=== PATIENT | male | born 1970 | race African-American/Black ===

== ENCOUNTER 2019-09-13 15:11 | Inpatient (IN) ==
[2019-09-13] MEDS ORDERED: ALBUTEROL 2.5 MG/3 ML NEB RESP TX STA (15:47)
[2019-09-13 16:18] LABS: ABG Base Excess -3.9 MMOL/L (-2.5-2.5); ABG HCO3 21.2 MMOL/L (20-26); ABG Oxygen Saturation 98.3 % (95-100); ABG PCO2 22.4 MM HG (35-48); ABG PH 7.495 (7.35-7.45); ABG TCO2 14.6 MMOL/L (23-27)
[2019-09-13 16:45] LABS: Basophils % 0.2 % (0.0-0.8); Eosinophils % 0.2 % (0.00-10.9); Hematocrit 47.2 VOL% (42.0-52.0); Hemoglobin 15.3 GM/DL (14.0-18.0); Immature Granulocytes % 0.2 %; Immature Granulocytes Absolute 0.01 #; Lymphocytes # 1.6 10*3/uL (1.4-4.0); Lymphocytes % 27.9 % (21.2-54.2); Mean Corpuscular HGB Conc 32.4 GM/DL (32-36); Mean Corpuscular Volume 91.7 FL (87-102); Mean Platelet Volume 12.7 FL (9.6-12.0); Monocytes % 8.8 % (1.7-12.7); NRBC # 0.04 10*3/uL; Neutrophils % 62.7 % (38.7-73.9); Platelet Count 88 T/CUMM (130-400); Red Blood Count 5.15 MC/CUMM (3.8-5.5); Red Cell Distribution Width 13.9 % (9.3-17.3); White Blood Count 5.9 T/CUMM (4-12)
[2019-09-13 17:04] LABS: Albumin 3.1 G/DL (3.4-5.0); Bilirubin,Total 1.9 MG/DL (0.2-1.0); Calcium 8.8 MG/DL (8.5-10.1); Osmolality,Calculated 289.5 MOS/KG (273-304); Total Protein 6.4 G/DL (6.4-8.3)
[2019-09-13 17:18] LABS: Platelet Estimate Decreased
[2019-09-13] MEDS ORDERED: ACETAMINOPHEN 325 MG TABLET PO PRN (18:06)
[2019-09-13] MEDS ORDERED: PROMETHAZINE 25 MG TABLET PO PRN (18:06)
[2019-09-13] MEDS ORDERED: FUROSEMIDE 40 MG/4 ML VIAL IV ONE ×2 (18:13→22:30)
[2019-09-13] MEDS ORDERED: cefTRIAXone 1,000 MG in SYRINGE 1 EACH IV SCH (18:30)
[2019-09-13] MEDS ORDERED: LORazepam 2 MG/1 ML VIAL IV PRN (18:41)
[2019-09-13] MEDS ORDERED: SODIUM CHLORIDE 0.9% 2,000 ML IV ONE (18:55)
[2019-09-13] MEDS ORDERED: SODIUM CHLORIDE 0.9% 1,000 ML IV SCH (19:00)
[2019-09-13] MEDS: ALBUTEROL/IPRATROPIUM 3 ML NEB RESP TX SCH (19:34)
[2019-09-13] MEDS ORDERED: ENOXAPARIN 40 MG/0.4 ML SYRINGE SUBCUT SCH (21:00)
[2019-09-13] MEDS: NICOTINE 21 MG/24 HR PATCH TRANSDERM SCH (21:50)
[2019-09-13] MEDS: FOLIC ACID 1 MG TABLET PO SCH (21:53)
[2019-09-13 23:37] LABS: Apearance,Urine CLEAR (Clear); Bacteria,Urine Occasional /HPF (Few); Bilirubin,Urine Negative (Negative); Blood, Urine Negative (Negative); Glucose,Urine (UA) Negative (Negative); Hyaline Casts,Urine 3 /LPF (0-3); Ketones,Urine Negative (Negative); Mucus,Urine Occasional /LPF (Occasional); Nitrite,Urine Negative (Negative); Protein,Urine Negative; RBC,Urine 5 /HPF (0-4); Urine Color Yellow (Yellow); Urine Specific Gravity 1.045 (1.001-1.035); WBC,Urine 1 /HPF (0-6)
[2019-09-14] MEDS: ALBUTEROL/IPRATROPIUM 3 ML NEB RESP TX SCH ×4 (00:38→20:03)
[2019-09-14 01:24] LABS: Barbiturates Screen,Urine Negative (Negative); Benzodiazepines Screen,Urine Negative (Negative); Cannabinoid Screen,Urine Negative (Negative); Opiate Screen,Urine Negative (Negative); Phencyclidine Screen,Urine Negative (Negative)
[2019-09-14 01:34] LABS: Basophils % 0.2 % (0.0-0.8); Hematocrit 41.6 VOL% (42.0-52.0); Hemoglobin 13.3 GM/DL (14.0-18.0); Immature Granulocytes % 0.3 %; Immature Granulocytes Absolute 0.02 #; Lymphocytes # 1.5 10*3/uL (1.4-4.0); Lymphocytes % 23.8 % (21.2-54.2); Mean Corpuscular Volume 92.9 FL (87-102); Mean Platelet Volume 12.4 FL (9.6-12.0); Monocytes % 9.2 % (1.7-12.7); NRBC # 0.03 10*3/uL; Neutrophils % 66.5 % (38.7-73.9); Red Blood Count 4.48 MC/CUMM (3.8-5.5); Red Cell Distribution Width 13.9 % (9.3-17.3); White Blood Count 6.2 T/CUMM (4-12)
[2019-09-14 01:41] LABS: Platelet Count 69 T/CUMM (130-400)
[2019-09-14 01:42] LABS: Calcium 8.1 MG/DL (8.5-10.1); Osmolality,Calculated 291.3 MOS/KG (273-304)
[2019-09-14 03:12] LABS: Anisocytosis 2+; Platelet Estimate Decreased
[2019-09-14 03:13] LABS: Acanthocytes 1+; Hypochromasia 2+; Macrocytosis 1+; Microcytosis 1+; Ovalocytes 1+; Target Cells 2+
[2019-09-14] MEDS ORDERED: MEROPENEM 500 MG in SODIUM CHLORIDE 0.9% 100 ML IV SCH (06:00)
[2019-09-14] MEDS: MEROPENEM 500 MG in SODIUM CHLORIDE 0.9% 100 ML IV SCH ×2 (06:25→17:35)
[2019-09-14] MEDS ORDERED: VANCOMYCIN INJ 1,000 MG in SODIUM CHLORIDE 0.9% 250 ML IV SCH (06:30)
[2019-09-14] MEDS: AZITHROMYCIN INJ 500 MG in SODIUM CHLORIDE 0.9% 250 ML IV SCH (08:15)
[2019-09-14] MEDS ORDERED: FUROSEMIDE 40 MG/4 ML VIAL IV SCH (09:00)
[2019-09-14] MEDS ORDERED: SUCCINYLCHOLINE 200 MG/10 ML VIAL ONE (09:53)
[2019-09-14] MEDS ORDERED: NOREPINEPHRINE 8 MG in SODIUM CHLORIDE 0.9% 242 ML IV PRN (09:57)
[2019-09-14] MEDS ORDERED: SODIUM CHLORIDE 0.9% 1,000 ML IV ONE (09:58)
[2019-09-14] MEDS ORDERED: PHENYLEPHRINE DRIP 40 MG/250 ML PREMIX IV ONE (10:02)
[2019-09-14] MEDS ORDERED: PHENYLEPHRINE DRIP 40 MG/250 ML PREMIX IV PRN (10:04)
[2019-09-14] MEDS ORDERED: EPINEPHrine 1 MG/10 ML SYRINGE IV ONE ×2 (10:09→10:30)
[2019-09-14] MEDS ORDERED: MIDAZOLAM 100 MG in SODIUM CHLORIDE 0.9% 80 ML IV PRN (10:16)
[2019-09-14] MEDS ORDERED: fentaNYL INJ 1,250 MCG in SODIUM CHLORIDE 0.9% 225 ML IV PRN (10:16)
[2019-09-14 10:38] LABS: ABG Base Excess -18.8 MMOL/L (-2.5-2.5); ABG HCO3 12.8 MMOL/L (20-26); ABG PCO2 55.3 MM HG (35-48); ABG TCO2 14.5 MMOL/L (23-27)
[2019-09-14 10:41] LABS: ABG PH 6.981 (7.35-7.45); ABG PO2 24.6 MM HG (80-95)
[2019-09-14] MEDS: NOREPINEPHRINE 16 MG in SODIUM CHLORIDE 0.9% 234 ML IV PRN ×2 (11:42→18:50)
[2019-09-14 11:43] LABS: ABG Base Excess -26.6 MMOL/L (-2.5-2.5); ABG HCO3 6.8 MMOL/L (20-26); ABG Oxygen Saturation 98.2 % (95-100); ABG PCO2 27.1 MM HG (35-48); ABG TCO2 5.7 MMOL/L (23-27)
[2019-09-14 11:44] LABS: ABG PH 6.937 (7.35-7.45)
[2019-09-14] MEDS: PHENYLEPHRINE INJ 160 MG in SODIUM CHLORIDE 0.9% 234 ML IV PRN ×2 (11:57→18:51)
[2019-09-14 12:45] LABS: Basophils % 0.5 % (0.0-0.8); Eosinophils % 0.2 % (0.00-10.9); Hematocrit 41.6 VOL% (42.0-52.0); Hemoglobin 12.4 GM/DL (14.0-18.0); Immature Granulocytes % 7.1 %; Immature Granulocytes Absolute 0.46 #; Lymphocytes # 2.2 10*3/uL (1.4-4.0); Lymphocytes % 33.2 % (21.2-54.2); Mean Corpuscular HGB Conc 29.8 GM/DL (32-36); Mean Corpuscular Volume 100.7 FL (87-102); Mean Platelet Volume 12.8 FL (9.6-12.0); Monocytes % 2.9 % (1.7-12.7); NRBC # 0.09 10*3/uL; Neutrophils % 56.1 % (38.7-73.9); Platelet Count 49 T/CUMM (130-400); Red Blood Count 4.13 MC/CUMM (3.8-5.5); Red Cell Distribution Width 13.7 % (9.3-17.3); White Blood Count 6.5 T/CUMM (4-12)
[2019-09-14 12:46] LABS: Albumin 1.9 G/DL (3.4-5.0); Bilirubin,Total 1.9 MG/DL (0.2-1.0); Calcium 6.5 MG/DL (8.5-10.1); Osmolality,Calculated 296.8 MOS/KG (273-304); Total Protein 4.4 G/DL (6.4-8.3)
[2019-09-14 12:49] LABS: Atypical Lymphocytes Few; Burr Cells Few; Hypochromasia 1+; Lymphocytes 41 % (20-55); Metamyelocytes 1 %; Nucleated Red Blood Cells 2 (0-5); Segmented Neutrophils 55 % (50-85); Total Cells Counted 100
[2019-09-14 12:50] LABS: Anisocytosis 1+; Microcytosis 1+; Platelet Estimate Decreased; Poikilocytosis 1+; Polychromasia Slight
[2019-09-14 12:51] LABS: Ovalocytes Slight
[2019-09-14 13:08] LABS: Apearance,Urine Slightly Hazy (Clear); Bacteria,Urine Occasional /HPF (Few); Bilirubin,Urine Negative (Negative); Blood, Urine Small mg/dL (Negative); Glucose,Urine (UA) Negative (Negative); Ketones,Urine Negative (Negative); Mucus,Urine Many /LPF (Occasional); Nitrite,Urine Negative (Negative); Protein,Urine 30 MG/DL; RBC,Urine 3 /HPF (0-4); Sperm,Urine Occasional /HPF (Negative); Squamous Epithelial Cell,Urine Occasional /HPF (0-10); Urine Color Yellow (Yellow); Urine Specific Gravity 1.025 (1.001-1.035)
[2019-09-14] MEDS: MULTIVITAMIN (BEROCCA) TABLET PO SCH (13:09)
[2019-09-14] MEDS: NICOTINE 21 MG/24 HR PATCH TRANSDERM SCH (13:10)
[2019-09-14] MEDS: THIAMINE 100 MG TABLET PO SCH (13:10)
[2019-09-14] MEDS: PANTOPRAZOLE 40 MG TABLET PO SCH (13:10)
[2019-09-14] MEDS ORDERED: SODIUM CHLORIDE 0.9% 1,000 ML IV PRN (15:19)
[2019-09-14] MEDS: CISATRACURIUM 200 MG in SODIUM CHLORIDE 0.9% 180 ML IV SCH (16:18)
[2019-09-14 19:26] LABS: ABG Base Excess -21.9 MMOL/L (-2.5-2.5); ABG HCO3 9.3 MMOL/L (20-26); ABG Oxygen Saturation 99.5 % (95-100); ABG PCO2 29.4 MM HG (35-48); ABG TCO2 7.7 MMOL/L (23-27)
[2019-09-14 19:30] LABS: ABG PH 7.059 (7.35-7.45)
[2019-09-14 19:39] LABS: Calcium 6.9 MG/DL (8.5-10.1); Osmolality,Calculated 291.1 MOS/KG (273-304)
[2019-09-14] MEDS ORDERED: SODIUM BICARBONATE 50 MEQ/50 ML VIAL IV ONE (19:49)
[2019-09-14] MEDS ORDERED: SODIUM POLYSTYRENE SULFATE 15 GM/60 ML BOTTLE PO ONE (19:57)
[2019-09-14] MEDS ORDERED: DEXTROSE 10% 250 ML IV SCH (20:00)
[2019-09-14] MEDS ORDERED: DEXTROSE 10% 250 ML BAG IV PRN (20:03)
[2019-09-14] MEDS: SODIUM BICARB INJ 150 MEQ in DEXTROSE 5% 850 ML IV SCH (20:39)
[2019-09-14] MEDS: FOLIC ACID 1 MG TABLET PO SCH (21:07)
[2019-09-14] MEDS ORDERED: DOBUTamine 500 MG/250 ML PREMIX IV PRN (21:47)
[2019-09-14] MEDS ORDERED: SODIUM POLYSTYRENE SULFATE 15 GM/60 ML BOTTLE RECTAL ONE (21:47)
[2019-09-14 21:48] LABS: ABG Base Excess -14.6 MMOL/L (-2.5-2.5); ABG HCO3 13.5 MMOL/L (20-26); ABG Oxygen Saturation 99.7 % (95-100); ABG PCO2 27.3 MM HG (35-48); ABG PH 7.241 (7.35-7.45); ABG TCO2 10.5 MMOL/L (23-27)
[2019-09-14 22:00] LABS: Calcium 6.5 MG/DL (8.5-10.1)
[2019-09-15 00:21] LABS: Basophils % 0.2 % (0.0-0.8); Hematocrit 43.7 VOL% (42.0-52.0); Hemoglobin 13.7 GM/DL (14.0-18.0); Immature Granulocytes % 2.3 %; Lymphocytes # 1.1 10*3/uL (1.4-4.0); Lymphocytes % 6.5 % (21.2-54.2); Mean Corpuscular HGB Conc 31.4 GM/DL (32-36); Mean Platelet Volume 12.1 FL (9.6-12.0); Monocytes % 2.7 % (1.7-12.7); NRBC # 0.62 10*3/uL; Neutrophils % 88.3 % (38.7-73.9); Red Blood Count 4.55 MC/CUMM (3.8-5.5); Red Cell Distribution Width 13.9 % (9.3-17.3); White Blood Count 17.2 T/CUMM (4-12)
[2019-09-15 00:23] LABS: Platelet Count 33 T/CUMM (130-400)
[2019-09-15 00:28] LABS: ABG Base Excess -11.4 MMOL/L (-2.5-2.5); ABG HCO3 15.7 MMOL/L (20-26); ABG Oxygen Saturation 99.4 % (95-100); ABG PCO2 26.1 MM HG (35-48); ABG PH 7.317 (7.35-7.45); ABG TCO2 11.7 MMOL/L (23-27)
[2019-09-15 00:41] LABS: Calcium 6.5 MG/DL (8.5-10.1)
[2019-09-15] MEDS: ALBUTEROL/IPRATROPIUM 3 ML NEB RESP TX SCH ×3 (01:01→13:28)
[2019-09-15] MEDS: NOREPINEPHRINE 16 MG in SODIUM CHLORIDE 0.9% 234 ML IV PRN ×2 (01:26→08:22)
[2019-09-15 01:37] LABS: Partial Thromboplastin Time 40.4 SECS (20.8-36.0)
[2019-09-15] MEDS: PHENYLEPHRINE INJ 160 MG in SODIUM CHLORIDE 0.9% 234 ML IV PRN ×2 (01:38→09:10)
[2019-09-15 01:39] LABS: PT Patient Result 31.9 SECS (9.6-12.2)
[2019-09-15] MEDS: MEROPENEM 500 MG in SODIUM CHLORIDE 0.9% 100 ML IV SCH ×2 (02:52→15:10)
[2019-09-15 03:53] LABS: ABG Base Excess -10.5 MMOL/L (-2.5-2.5); ABG HCO3 16.4 MMOL/L (20-26); ABG Oxygen Saturation 99.7 % (95-100); ABG PCO2 28.8 MM HG (35-48); ABG PH 7.311 (7.35-7.45); ABG TCO2 12.7 MMOL/L (23-27)
[2019-09-15 04:05] LABS: Band Neutrophils 6 % (0-10); Lymphocytes 6 % (20-55); Myelocytes 1 %; Nucleated Red Blood Cells 5 (0-5); Segmented Neutrophils 85 % (50-85); Total Cells Counted 100
[2019-09-15 04:06] LABS: Basophils % 0.1 % (0.0-0.8); Hematocrit 44.3 VOL% (42.0-52.0); Hemoglobin 13.9 GM/DL (14.0-18.0); Immature Granulocytes % 2.2 %; Immature Granulocytes Absolute 0.38 #; Lymphocytes # 1.5 10*3/uL (1.4-4.0); Lymphocytes % 8.9 % (21.2-54.2); Mean Corpuscular HGB Conc 31.4 GM/DL (32-36); Mean Corpuscular Volume 95.7 FL (87-102); Monocytes % 2.4 % (1.7-12.7); NRBC # 0.55 10*3/uL; Neutrophils % 86.4 % (38.7-73.9); Red Blood Count 4.63 MC/CUMM (3.8-5.5); White Blood Count 17.4 T/CUMM (4-12)
[2019-09-15 04:12] LABS: Platelet Count 66 T/CUMM (130-400)
[2019-09-15 04:14] LABS: Acanthocytes Few; Hypochromasia 1+
[2019-09-15 04:15] LABS: Anisocytosis 1+; Macrocytosis 1+
[2019-09-15 04:16] LABS: Platelet Estimate Decreased; Polychromasia Slight; Target Cells Slight; Tear Drop Cells Few
[2019-09-15 04:35] LABS: Partial Thromboplastin Time 39.9 SECS (20.8-36.0)
[2019-09-15 04:42] LABS: INR 2.7
[2019-09-15 04:45] LABS: PT Patient Result 29.1 SECS (9.6-12.2)
[2019-09-15 04:51] LABS: Hypochromasia 1+
[2019-09-15 04:52] LABS: Anisocytosis 1+; Burr Cells Slight; Macrocytosis 1+; Target Cells Slight
[2019-09-15 04:53] LABS: Platelet Estimate Decreased; Polychromasia Slight
[2019-09-15 05:09] VITALS: BP 89/52
[2019-09-15] MEDS: SODIUM BICARB INJ 150 MEQ in DEXTROSE 5% 850 ML IV SCH ×2 (05:55→15:25)
[2019-09-15] MEDS ORDERED: VANCOMYCIN INJ 1,000 MG in SODIUM CHLORIDE 0.9% 250 ML IV SCH (06:00)
[2019-09-15 06:01] LABS: Calcium 6.3 MG/DL (8.5-10.1)
[2019-09-15] MEDS ORDERED: AMIODARONE 150 MG/3 ML VIAL ONE (06:10)
[2019-09-15] MEDS ORDERED: AMIODARONE INJ 150 MG in DEXTROSE 5% 100 ML IV ONE (06:20)
[2019-09-15] MEDS ORDERED: AMIODARONE 450 MG/9 ML VIAL IV ONE (06:21)
[2019-09-15] MEDS ORDERED: AMIODARONE INJ 450 MG in DEXTROSE 5% 241 ML IV SCH ×2 (06:30→13:00)
[2019-09-15] MEDS ORDERED: EPINEPHrine 1 MG/10 ML SYRINGE IV ONE ×16 (08:30→11:09)
[2019-09-15] MEDS ORDERED: EPINEPHrine 1 MG/10 ML SYRINGE ONE ×4 (08:31→12:03)
[2019-09-15] MEDS ORDERED: ETOMIDATE 20 MG/10 ML VIAL IV ONE (09:48)
[2019-09-15] MEDS ORDERED: EPINEPHrine 1 MG/ML VIAL IV ONE ×7 (09:55→11:10)
[2019-09-15] MEDS: EPINEPHrine 1 MG/ML VIAL IV PRN ×22 (11:25→13:18)
[2019-09-15] MEDS ORDERED: SODIUM BICARBONATE 50 MEQ/50 ML SYRINGE IV ONE (12:03)
[2019-09-15] MEDS: THIAMINE 100 MG TABLET PO SCH (12:11)
[2019-09-15] MEDS: PANTOPRAZOLE 40 MG TABLET PO SCH (12:11)
[2019-09-15] MEDS: MULTIVITAMIN (BEROCCA) TABLET PO SCH (12:11)
[2019-09-15] MEDS: CISATRACURIUM 200 MG in SODIUM CHLORIDE 0.9% 180 ML IV SCH (15:10)
[2019-09-15] MEDS: AZITHROMYCIN INJ 500 MG in SODIUM CHLORIDE 0.9% 250 ML IV SCH (15:10)
[2019-09-15] MEDS: NICOTINE 21 MG/24 HR PATCH TRANSDERM SCH (15:25)
== END 2019-09-15 13:35 | disposition expired | DRG 291 ==
LOC: EDUNIT# → EDBD → N.ED 15:11 → N.EDINP 18:06 → SUATTDRO 18:06 → N.TELES 18:33 → N.CC 09-14 09:57
PROVIDERS: ADMIT Internal Medicine; ATTEND Internal Medicine